=== PATIENT | male | born 1995 | race African-American/Black ===

== ENCOUNTER 2018-11-21 02:44 | Emergency (ER) | payer OTHER ==
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
[2018-11-21 04:37] VITALS: BP 0/0
== END 2018-11-21 04:36 | disposition home or self-care (01) ==
LOC: ED 02:44
DX: S46.811A Strain of other muscles, fascia and tendons at shoulder and upper arm level, right arm, initial encounter (principal); W51.XXXA Accidental striking against or bumped into by another person, initial encounter; Y92.9 Unspecified place or not applicable; F17.200 Nicotine dependence, unspecified, uncomplicated
CPT/HCPCS: 99282

== ENCOUNTER 2019-03-15 01:26 | Emergency (ER) | payer OTHER ==
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
[2019-03-15 02:05] VITALS: BP 127/85
--- OUTSIDE RECORDS SUMMARY | 2019-03-15 02:10 | XMS REPORT ---
:1995 Author Organization [facility] Care Team Providers Name Role Phone Megha Brock Primary Care Physician Unavailable Allergies, Adverse Reactions, Alerts Allergy Code CodeSystem Reaction Severity Criticality Status Start Substance Date Moderate Medications Medication Medication Medication Start Stop Route Dose Status Fill Code CodeSystem Date Date Instructions RxNorm Problems Problem Name Code CodeSystem Alternate Alternate Start End Status Narrative Code CodeSystem Date Date Adjustment 81723801 SNOMED-CT 2018-03 Active disorder, 04-04 Unspecified Relevant diagnostic tests/laboratory data Narrative No Information Procedures Procedure Code CodeSystem Target Date of Status Service Device Device Device Name Site Procedure Delivery Code Name UID Location SNOMED-CT () 2018-12-[address], [id number] Encounters/Encounter Diagnoses Encounter Encounter Diagnosis Diagnosis Name Diagnosis Date of Service Name Code Code CodeSystem Diagnosis Delivery Location Non-Billable [id number] Adjustment SNOMED-CT 2019-01-05 Behavioral disorder, Health Unspecified Clinic , , , Vital Signs No Information Social History Element Description Description Start End Code CodeSystem AdditionalInfo Date Date SexAssignedAtBirth Male 1995-0 M AdministrativeGender 09-24 Hospital Discharge Instructions Reason For Referral Medical Equipment FDA Assessments
== END 2019-03-15 02:03 | disposition home or self-care (01) ==
LOC: ED 01:26
DX: F19.10 Other psychoactive substance abuse, uncomplicated (principal); F17.200 Nicotine dependence, unspecified, uncomplicated
CPT/HCPCS: 99282

== ENCOUNTER 2019-03-27 01:00 | Emergency (ER) | payer SELFPAY ==
[2019-03-27] MEDS ORDERED: LORazepam INJ* 2 MG/ML 1 ML VIAL ONE (01:08)
[2019-03-27] MEDS ORDERED: Lorazepam PYXIS KEY ONE (01:08)
[2019-03-27] MEDS ORDERED: LORazepam INJ* 2 MG/ML 1 ML VIAL IM ONE (01:10)
[2019-03-27] MEDS ORDERED: NS 0.9% 1000 ML** 2,000 ML IV ONE (01:34)
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
[2019-03-27] MEDS ORDERED: Lidocaine 1% INJ* 10 MG/ML 30 ML SDV INJ ONE (02:01)
[2019-03-27] MEDS ORDERED: Lidocaine 1% INJ* 10 MG/ML 30 ML SDV ONE (02:03)
[2019-03-27] MEDS ORDERED: fentaNYL* 50 MCG/ML 2 ML VIAL (100 MCG VIAL) ONE (03:47)
[2019-03-27] MEDS ORDERED: fentaNYL* 50 MCG/ML 2 ML VIAL (100 MCG VIAL) IV SLOW PU ONE (03:51)
[2019-03-27] MEDS ORDERED: oxyCODONE/Acetamin 5/325 MG* TAB PO ONE (06:45)
[2019-03-27 06:51] VITALS: BP 115/66
== END 2019-03-27 06:51 | disposition home or self-care (01) ==
LOC: ED 01:00
DX: S01.81XA Laceration without foreign body of other part of head, initial encounter (principal); S01.01XA Laceration without foreign body of scalp, initial encounter; X99.1XXA Assault by knife, initial encounter; Y92.9 Unspecified place or not applicable; F17.200 Nicotine dependence, unspecified, uncomplicated
CPT/HCPCS: 12004; 12016; 70450; 96361; 96372; 96374; 99285; A9270-GY; J2060; J3010

== ENCOUNTER 2019-03-27 09:48 | Emergency (ER) | payer SELFPAY ==
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
[2019-03-27 10:18] VITALS: BP 00/00
== END 2019-03-27 10:15 | disposition home or self-care (01) ==
LOC: ED 09:48
DX: S01.91XA Laceration without foreign body of unspecified part of head, initial encounter (principal); X99.1XXA Assault by knife, initial encounter; Y92.9 Unspecified place or not applicable; F17.200 Nicotine dependence, unspecified, uncomplicated
CPT/HCPCS: 99282

== ENCOUNTER 2019-03-29 14:29 | Emergency (ER) | payer SELFPAY ==
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
[2019-03-29 17:50] VITALS: BP 141/73
== END 2019-03-29 17:47 | disposition home or self-care (01) ==
LOC: ED 14:29
DX: R52 Pain, unspecified (principal); F17.200 Nicotine dependence, unspecified, uncomplicated
CPT/HCPCS: 99282

== ENCOUNTER 2019-04-08 12:25 | Emergency (ER) | payer SELFPAY ==
[2019-04-08 13:33] VITALS: BP 0/0
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
== END 2019-04-08 13:30 | disposition home or self-care (01) ==
LOC: ED 12:25
DX: Z48.02 Encounter for removal of sutures (principal); S01.01XD Laceration without foreign body of scalp, subsequent encounter; X58.XXXD Exposure to other specified factors, subsequent encounter; F17.210 Nicotine dependence, cigarettes, uncomplicated
CPT/HCPCS: 99281

== ENCOUNTER 2019-04-27 21:15 | Emergency (ER) | payer SELFPAY ==
[2019-04-27] MEDS ORDERED: Tetan/Diph/Pertus SYR(Tdap)* 0.5 ML SYR(BOOSTRIX) use SYR contains LATEX IM ONE (21:26)
[2019-04-27] MEDS ORDERED: fentaNYL* 50 MCG/ML 2 ML VIAL (100 MCG VIAL) IV SLOW PU ONE (21:26)
[2019-04-27] MEDS ORDERED: NS 0.9% 1000 ML** 1,000 ML IV ONE ×2 (21:27→21:44)
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
[2019-04-27] MEDS ORDERED: oxyCODONE/Acetamin 5/325 MG* TAB PO ONE ×2 (21:52→23:30)
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
[2019-04-27 23:34] VITALS: BP 117/60
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
== END 2019-04-27 23:34 | disposition home or self-care (01) ==
LOC: ED 21:15
DX: S92.511B Displaced fracture of proximal phalanx of right lesser toe(s), initial encounter for open fracture (principal); W34.00XA Accidental discharge from unspecified firearms or gun, initial encounter; Y92.9 Unspecified place or not applicable; M79.661 Pain in right lower leg; F17.210 Nicotine dependence, cigarettes, uncomplicated
CPT/HCPCS: 90471; 90715; 96361; 96374; 99284; A9270-GY; J3010